=== PATIENT | female | born 1995 | race Caucasian/White ===

== ENCOUNTER 2017-01-12 15:51 | Emergency (ER) | payer MEDICAID ==
[~2017-01-12] VITALS: Ht 170.2 cm; Wt 116.0 kg
[2017-01-12] MEDS ORDERED: SODIUM CHLORIDE 0.9% 1,000 ML IV ONE (18:12)
[2017-01-12 18:46] LABS: EOSINOPHILS % 2.9 % (0.0-5.0); HEMATOCRIT. 41.1 % (36.0-48.0); HEMOGLOBIN. 13.7 g/dL (12.0-16.0); LYMPHOCYTES % 26.1 % (20.0-50.0); MEAN CORPUSCULAR HEMOGLOBIN 26.7 pg (28.0-32.0); MEAN CORPUSCULAR VOLUME 79.9 fL (81.0-99.0); MEAN PLATELET VOLUME 8.6 fl (7.4-10.4); MONOCYTES % 5.7 % (2.0-8.0); NEUTROPHILS % 64.3 % (40.0-76.0); PLATELET 371 x1000/uL (130-400); RED BLOOD CELL COUNT 5.14 mill/uL (4.2-5.4); RED CELL DISTRIBUTION WIDTH 15.2 % (11.6-14.6)
[2017-01-12 18:55] LABS: CARBON DIOXIDE 24 mEq/L (21-32); CHLORIDE 105 mEq/L (98-107)
[2017-01-12 19:34] LABS: CLARITY URINE CLEAR (CLEAR); COLOR URINE YELLOW (YELLOW); GLUCOSE URINE NEGATIVE (NEGATIVE); KETONES URINE NEGATIVE (NEGATIVE); LEUKOCYTE ESTERASE URINE NEGATIVE (NEGATIVE); NITRITE URINE NEGATIVE (NEGATIVE); OCCULT BLOOD URINE NEGATIVE (NEGATIVE); PROTEIN URINE NEGATIVE (NEGATIVE); SPECIFIC GRAVITY URINE 1.032 (1.005-1.030); UROBILINOGEN URINE 0.2 E.U./dL (0.2-1.0)
[2017-01-12] MEDS ORDERED: KETOROLAC 30MG/ML VIAL IV ONE (21:00)
[2017-01-12 21:47] VITALS: BP 126/63
== END 2017-01-12 21:49 | disposition home or self-care (01) ==
LOC: ER 15:51
DX: R10.30 Lower abdominal pain, unspecified (principal); E66.9 Obesity, unspecified; R19.7 Diarrhea, unspecified
CPT/HCPCS: 36415; 74176; 80053; 81003; 81025; 83690; 85025; 96361; 96374; 99285; J1885; J7030; Z7610

== ENCOUNTER 2017-04-14 21:21 | Emergency (ER) | payer MEDICAID | END 2017-04-14 22:33 | disposition left against medical advice (07) | LOC: ER 22:16 | DX: Z53.21 Procedure and treatment not carried out due to patient leaving prior to being seen by health care provider (principal) ==

== ENCOUNTER 2017-10-17 01:37 | Emergency (ER) | payer MEDICAID ==
[~2017-10-17] VITALS: Ht 167.6 cm; Wt 116.0 kg
[2017-10-17] MEDS ORDERED: DIPHENHYDRAMINE 25MG CAPSULE PO ONE (03:30)
[2017-10-17 04:17] VITALS: BP 131/62
== END 2017-10-17 05:27 | disposition home or self-care (01) ==
LOC: ER 01:37
DX: J30.81 Allergic rhinitis due to animal (cat) (dog) hair and dander (principal)
CPT/HCPCS: 99283; Q0163

== ENCOUNTER 2017-11-04 13:58 | Emergency (ER) | payer MEDICAID ==
[~2017-11-04] VITALS: Ht 170.2 cm; Wt 118.0 kg
[2017-11-04] MEDS ORDERED: IBUPROFEN 600MG TABLET PO ONE (14:30)
[2017-11-04] MEDS ORDERED: BACITRACIN ZINC OINT UDPKT TOP ONE (14:45)
[2017-11-04 14:57] VITALS: BP 146/79
== END 2017-11-04 15:07 | disposition home or self-care (01) ==
LOC: ER 14:39
DX: S99.922A Unspecified injury of left foot, initial encounter (principal); Z88.1 Allergy status to other antibiotic agents; W22.8XXA Striking against or struck by other objects, initial encounter; Y93.89 Activity, other specified; Y92.89 Other specified places as the place of occurrence of the external cause; Y99.8 Other external cause status
CPT/HCPCS: 99284

== ENCOUNTER 2018-12-04 19:52 | Emergency (ER) | payer MEDICAID ==
[~2018-12-04] VITALS: Ht 170.2 cm; Wt 114.0 kg
[2018-12-04] MEDS ORDERED: IBUPROFEN 600MG TABLET PO ONE (22:45)
[2018-12-04 22:51] VITALS: BP 150/89
== END 2018-12-06 09:02 | disposition home or self-care (01) ==
LOC: ER 19:52
DX: S76.012A Strain of muscle, fascia and tendon of left hip, initial encounter (principal); E66.9 Obesity, unspecified; Z68.39 Body mass index [BMI] 39.0-39.9, adult; X50.3XXA Overexertion from repetitive movements, initial encounter; Y93.89 Activity, other specified; Y92.018 Other place in single-family (private) house as the place of occurrence of the external cause
CPT/HCPCS: 81025; 99282

== ENCOUNTER 2019-05-18 11:15 | Emergency (ER) | payer MEDICAID ==
[~2019-05-18] VITALS: Ht 170.2 cm; Wt 100.0 kg
[2019-05-18 12:10] VITALS: BP 124/61
== END 2019-05-18 14:38 | disposition left against medical advice (07) ==
LOC: ER 11:15
DX: R05 Cough (principal); R09.81 Nasal congestion; J02.9 Acute pharyngitis, unspecified; Z53.21 Procedure and treatment not carried out due to patient leaving prior to being seen by health care provider

== ENCOUNTER 2025-01-27 16:31 | Emergency (ER) | payer SELFPAY ==
[~2025-01-27] VITALS: Ht 170.2 cm; Wt 84.0 kg
[2025-01-27 16:43] VITALS: O2SAT 98
[2025-01-27 18:59] VITALS: BP 130/70; PULSE 89; RESP 16; TEMP 37.1; O2SAT 98
== END 2025-01-27 22:41 | disposition left against medical advice (07) ==
LOC: ER 16:31
DX: M25.512 Pain in left shoulder (principal); M25.572 Pain in left ankle and joints of left foot; M25.561 Pain in right knee
CPT/HCPCS: 99281

== ENCOUNTER 2025-01-28 11:09 | Emergency (ER) | payer SELFPAY ==
[~2025-01-28] VITALS: Ht 170.2 cm; Wt 83.0 kg
[2025-01-28 11:17] VITALS: O2SAT 99
[2025-01-28 11:23] VITALS: TEMP 36.7; O2SAT 100
[2025-01-28 11:58] VITALS: BP 121/79; PULSE 100; RESP 18
[2025-01-28] MEDS: LIDOCAINE 5% PATCH TOP STA (11:58)
[2025-01-28] MEDS: IBUPROFEN 600MG TABLET PO ONE (11:58)
== END 2025-01-28 14:15 | disposition home or self-care (01) ==
LOC: ER 11:09
DX: M79.672 Pain in left foot (principal); M25.512 Pain in left shoulder; E11.9 Type 2 diabetes mellitus without complications; J45.909 Unspecified asthma, uncomplicated; Z88.0 Allergy status to penicillin; V29.99XA Rider (driver) (passenger) of other motorcycle injured in unspecified traffic accident, initial encounter; Y93.89 Activity, other specified; Y92.89 Other specified places as the place of occurrence of the external cause; Y99.8 Other external cause status
CPT/HCPCS: 73030; 73630; 99284